=== PATIENT | female | born 1965 | race Caucasian/White ===

== ENCOUNTER 2022-05-10 12:15 | Outpatient (CLI) | payer OTHER, SELFPAY ==
[2022-05-10 19:50] LABS: Alanine Aminotransferase 39 U/L (6-35); Albumin Level 4.8 g/dL (3.5-5.1); Alkaline Phosphatase 68 U/L (38-126); Anion Gap 7 mmol/L (8-16); Aspartate Amino Transferase 50 U/L (14-36); Bilirubin,Total 0.9 mg/dL (0.2-1.3); Blood Urea Nitrogen 14 mg/dL (7-17); Calcium 9.6 mg/dL (8.4-10.2); Carbon Dioxide 31 mmol/L (22-30); Chloride 103 mmol/L (98-107); Cholesterol 211 mg/dL (0-200); Estimated Glomerular Filt Rate 52; Glucose 102 mg/dL (65-110); HDL Direct 51 mg/dL; Potassium 3.2 mmol/L (3.4-5.0); Sodium 141 mmol/L (137-145); Triglycerides 186 mg/dL (<150)
[2022-05-10 20:01] LABS: LDL Cholesterol Direct 109 mg/dL
[2022-05-10 20:19] LABS: Hemoglobin A1C 5.2 % (<5.7)
[2022-05-10 20:41] LABS: Basophils Percent Auto 0.6 % (0.2-1.2); Eosinophils Absolute Auto 0.4 K/mm3 (0-0.3); Eosinophils Percent Auto 6.6 % (0-4.4); Hemoglobin 16.1 g/dL (12.0-15.0); Immature Granulocyte Absolute 0.03 K/mm3 (0.00-0.031); Immature Granulocyte Percent A 0.5 % (0-0.5); Lymphocytes Absolute Auto 1.17 K/mm3 (0.9-3.2); Lymphocytes Percent Auto 18.3 % (18.3-44.2); Mean Corpuscular HGB Conc 31.6 g/dl (32-36); Mean Corpuscular Hemoglobin 29.9 pg (26-34); Mean Corpuscular Volume 94.6 fl (80-100); Mean Platelet Volume 11.7 fl (7.4-10.4); Monocytes Absolute Auto 0.4 K/mm3 (0.1-0.6); Monocytes Percent Auto 6.6 % (2.6-8.5); Neutrophils Absolute Auto 4.3 K/mm3 (1.3-6.7); Neutrophils Percent Auto 67.4 % (45.5-73.1); Platelet Count Result 190 k/mm3 (150-375); Red Blood Count 5.39 M/mm3 (4.2-5.4); Red Cell Distribution Width 14.6 % (11.5-14.5); White Blood Count 6.4 K/mm3 (4.5-10.0)
== END 2022-05-10 12:16 | disposition home or self-care (01) ==
PROVIDERS: PCP Family Medicine; Visit Provider Family Medicine
DX: Z00.00 Encounter for general adult medical examination without abnormal findings (principal); E66.9 Obesity, unspecified; M06.9 Rheumatoid arthritis, unspecified; M79.7 Fibromyalgia
CPT/HCPCS: 36415; 80053; 80061; 83036; 84443; 85025

== ENCOUNTER 2022-05-17 15:01 | Outpatient (CLI) | payer OTHER, SELFPAY ==
[2022-05-17 19:15] LABS: Thyroid Stimulating Hormone 0.464 uIU/mL (0.465-4.680)
[2022-05-20 04:20] LABS: Triiodothyronine T3 Free 3.1 pg/mL (2.3-4.2)
== END 2022-05-17 15:02 | disposition home or self-care (01) ==
LOC: ANHBWCLAB 15:02
PROVIDERS: PCP Family Medicine; Visit Provider Family Medicine
DX: R79.89 Other specified abnormal findings of blood chemistry (principal)
CPT/HCPCS: 36415; 84439; 84443; 84481

== ENCOUNTER 2022-06-29 03:26 | Day surgery (SDC) | payer OTHER, SELFPAY ==
[2022-06-19 09:09] VITALS: BMI 53.1
[2022-06-29 09:50] VITALS: BP 133/68; PULSE 96; RESP 18; TEMP 36.5; O2SAT 97; BMI 53.0
[2022-06-29] MEDS: LACTATED RINGERS 1,000 ML 150 ML IV CONT (10:00)
--- NOTE | 2022-06-29 10:05 | PM.HPGS ---
History of Present Illness History of Present Illness Consent: Risks, benefits, and alternatives have been discussed and questions answered. Patient agrees to proceed with procedure. Chief complaint: neoplasm screening Narrative: Samantha Roberto is a 57 year old female here for first screening colonoscopy Review of Systems Constitutional: Constitutional: Denies headache(s) and Denies weakness Eyes: Eyes: Denies blurry vision ENT: Reports Normal hearing present, Denies headache(s) and Denies neck pain Cardiovascular: Cardiovascular: Denies chest pain and Denies dyspnea Respiratory: Respiratory: Denies dyspnea Gastrointestinal: Gastrointestinal: Reports no additional gastrointestinal complaints Genitourinary: Genitourinary: Denies dysuria Musculoskeletal: Musculoskeletal: Denies neck pain Integumentary/Breasts: Skin/Breast: Denies dry skin Neurologic: Reports Normal hearing present, Denies headache(s) and Denies weakness Psychiatric: Psychiatric: Denies anxiety Endocrine: Endocrine: Denies change in body appearance Hematologic/Lymphatic: Hematologic/Lymphatic: Denies easy bleeding Allergic/Immunologic: Allergic/Immunologic: Denies urticaria PMFSH Family History Family History (Updated 05/10/22 @ 11:35 by Miri Hyde MA) Father Cancer Mother Hypertension Depression Heart disease Disorder of thyroid Lupus Sibling History of ETOH abuse Hypertension Depression Grandparent Disorder of thyroid Grandparent Disorder of thyroid Social History Social History (Updated 05/10/22 @ 11:01 by Miri Hyde MA) Smoking status: Never smoker Alcohol intake: never Substance use: current Substance use type: marijuana Last use: 1-2X monthly Lack of Transportation: No Lack of Food: Never True Current Housing: I Have Housing Concerned About Future Housing: No Difficulty Paying Gas/Electric Bills: No Difficulty Paying for Meds: No Currently Unemployed: No Education: Trade/Vocational Certificate Difficulty w/ Childcare or Family Care: No Living arrangements: with family Gender identity (if verbalized by the patient): Female Spiritual care concerns: No Agree to blood products: Yes Meds Home Medications and Allergies Home Medications Medication Instructions Recorded Confirmed Type biotin 10,000 mcg capsule 10,000 mcg PO DAILY 05/10/22 06/29/22 History bupropion HCl 150 mg 24 hr tablet, 150 mg PO QAM #90 tabs 05/10/22 06/29/22 Rx extended release (Wellbutrin XL) duloxetine 60 mg capsule,delayed 60 mg PO DAILY 05/10/22 06/29/22 History release folic acid 1 mg tablet 1 mg PO DAILY 05/10/22 06/29/22 History gabapentin 600 mg tablet 600 mg PO DAILY 05/10/22 06/29/22 History hydroxychloroquine 200 mg tablet 200 mg PO BID 05/10/22 06/29/22 History mecobalamin (vitamin B12) 5,000 5,000 mcg PO DAILY 05/10/22 06/29/22 History mcg disintegrating tablet zinc sulfate 50 mg zinc (220 mg) 50 mg PO DAILY 05/10/22 06/29/22 History capsule (Orazinc) aspirin 81 mg tablet 81 mg PO DAILY 06/19/22 06/29/22 History cetirizine 10 mg tablet (Zyrtec) 10 mg PO DAILY 06/19/22 06/29/22 History cyclobenzaprine 10 mg tablet 10 mg PO DAILY 06/19/22 06/29/22 History methotrexate sodium (PF) 25 mg/mL 12.5 mg IM WEEKLY 06/19/22 06/29/22 History injection solution oxycodone 5 mg tablet 5 - 10 mg PO Q12H PRN Pain 06/19/22 06/29/22 History potassium chloride 20 mEq 20 meq PO DAILY 06/19/22 06/29/22 History tablet,extended release topiramate 50 mg tablet 50 mg PO DAILY 06/19/22 06/29/22 History triamterene 37.5 1 cap PO DAILY #90 caps 06/25/22 06/29/22 Rx mg-hydrochlorothiazide 25 mg capsule Allergies Allergy/AdvReac Type Severity Reaction Status Date / Time No Known Allergies Allergy Verified 06/29/22 09:49 Vital Signs Vital Signs - 24 hr 06/29/22 09:50 Temperature 97.7 F Pulse Rate 96 Respiratory Rate 18 Blood Pressure 1
--- NOTE | 2022-06-29 10:07 | WPDANESEPPF ---
Anes - Initial Pre Proc Eval Procedure: Operation Date: 06/29/22 11:00 Proposed Procedures p Screening Colonoscopy - Carlos Scherer MD Date/Time: 06/29/22 10:07 Surgeon: Carlos Scherer MD Pre Op Diagnosis: neoplasm screening Patient Data Age: 57 Gender: F Height: 1.63 m Weight: 140.1 kg Last Vital Signs Temp 97.7 F 06/29/22 09:50 Pulse 96 06/29/22 09:50 Resp 18 06/29/22 09:50 BP 133/68 06/29/22 09:50 Pulse Ox 97 06/29/22 09:50 O2 Del Method Room Air 06/29/22 09:50 Allergies Allergy/AdvReac Type Severity Reaction Status Date / Time No Known Allergies Allergy Verified 06/29/22 09:49 Home Medications Medication Instructions Recorded Confirmed Type biotin 10,000 mcg capsule 10,000 mcg PO DAILY 05/10/22 06/29/22 History bupropion HCl 150 mg 24 hr tablet, 150 mg PO QAM #90 tabs 05/10/22 06/29/22 Rx extended release (Wellbutrin XL) duloxetine 60 mg capsule,delayed 60 mg PO DAILY 05/10/22 06/29/22 History release folic acid 1 mg tablet 1 mg PO DAILY 05/10/22 06/29/22 History gabapentin 600 mg tablet 600 mg PO DAILY 05/10/22 06/29/22 History hydroxychloroquine 200 mg tablet 200 mg PO BID 05/10/22 06/29/22 History mecobalamin (vitamin B12) 5,000 5,000 mcg PO DAILY 05/10/22 06/29/22 History mcg disintegrating tablet zinc sulfate 50 mg zinc (220 mg) 50 mg PO DAILY 05/10/22 06/29/22 History capsule (Orazinc) aspirin 81 mg tablet 81 mg PO DAILY 06/19/22 06/29/22 History cetirizine 10 mg tablet (Zyrtec) 10 mg PO DAILY 06/19/22 06/29/22 History cyclobenzaprine 10 mg tablet 10 mg PO DAILY 06/19/22 06/29/22 History methotrexate sodium (PF) 25 mg/mL 12.5 mg IM WEEKLY 06/19/22 06/29/22 History injection solution oxycodone 5 mg tablet 5 - 10 mg PO Q12H PRN Pain 06/19/22 06/29/22 History potassium chloride 20 mEq 20 meq PO DAILY 06/19/22 06/29/22 History tablet,extended release topiramate 50 mg tablet 50 mg PO DAILY 06/19/22 06/29/22 History triamterene 37.5 1 cap PO DAILY #90 caps 06/25/22 06/29/22 Rx mg-hydrochlorothiazide 25 mg capsule Patient hx anesthesia problems: none Family hx anesthesia problems: none Results Review: All pre-operative results and documents have been reviewed as part of the pre-operative evaluation. [facility] Family History Family History (Updated 05/10/22 @ 11:35 by Miri Hyde MA) Father Cancer Mother Hypertension Depression Heart disease Disorder of thyroid Lupus Sibling History of ETOH abuse Hypertension Depression Grandparent Disorder of thyroid Grandparent Disorder of thyroid Social History Social History (Updated 05/10/22 @ 11:01 by Miri Hyde MA) Smoking status: Never smoker Alcohol intake: never Substance use: current Substance use type: marijuana Last use: 1-2X monthly Lack of Transportation: No Lack of Food: Never True Current Housing: I Have Housing Concerned About Future Housing: No Difficulty Paying Gas/Electric Bills: No Difficulty Paying for Meds: No Currently Unemployed: No Education: Trade/Vocational Certificate Difficulty w/ Childcare or Family Care: No Living arrangements: with family Gender identity (if verbalized by the patient): Female Spiritual care concerns: No Agree to blood products: Yes Anes - Eval Final PreProcedure Day of Procedure 06/29/22 10:07 Patient weight: super morbidly obese Heart: regular rate and rhythm Lungs: clear to auscultation Airway: Mallampati scale class III Neurological: alert and oriented Last oral intake: >/= 8 hours ASA classification: IV Emergent: no Anesthetic plan: proceed Anesthesia type and monitoring: general GIVS and standard monitoring Results Review: All pre-operative results and documents have been reviewed as part of the pre-operative evaluation. Informed Consent: The patient's anesthetic plan and its attendant risks and benefits were discussed wi
[2022-06-29 10:22] VITALS: BP 108/57; PULSE 84; RESP 14; O2SAT 97
[2022-06-29 10:32] VITALS: BP 109/58; PULSE 82; RESP 16; O2SAT 99
[2022-06-29 10:42] VITALS: BP 112/64; PULSE 81; RESP 18; O2SAT 98
== END 2022-06-29 10:50 | disposition home or self-care (01) ==
PROVIDERS: PCP Family Medicine; Visit Provider Internal Medicine Gastroenterology
PROC: 0DJD8ZZ Inspection of Lower Intestinal Tract, Via Natural or Artificial Opening Endoscopic (ICD-10-PCS; CPT 45378; principal; 2022-06-29 11:00)
DX: Z12.11 Encounter for screening for malignant neoplasm of colon (principal); D12.2 Benign neoplasm of ascending colon; K64.8 Other hemorrhoids; Z79.82 Long term (current) use of aspirin; F12.90 Cannabis use, unspecified, uncomplicated; E66.01 Morbid (severe) obesity due to excess calories; Z68.43 Body mass index [BMI] 50.0-59.9, adult
CPT/HCPCS: 45385; 88305; J2704; J7120

== ENCOUNTER 2022-11-20 14:41 | Outpatient (CLI) | payer OTHER, SELFPAY ==
[2022-11-20 18:31] LABS: Basophils Percent Auto 0.6 % (0.2-1.2); Eosinophils Absolute Auto 0.4 K/mm3 (0-0.3); Eosinophils Percent Auto 5.6 % (0-4.4); Hematocrit 45.7 % (37.0-47.0); Hemoglobin 14.5 g/dL (12.0-15.0); Immature Granulocyte Absolute 0.03 K/mm3 (0.00-0.031); Immature Granulocyte Percent A 0.4 % (0-0.5); Lymphocytes Absolute Auto 1.46 K/mm3 (0.9-3.2); Lymphocytes Percent Auto 20.5 % (18.3-44.2); Mean Corpuscular HGB Conc 31.7 g/dl (32-36); Mean Corpuscular Hemoglobin 30.1 pg (26-34); Mean Platelet Volume 12.5 fl (7.4-10.4); Monocytes Absolute Auto 0.5 K/mm3 (0.1-0.6); Monocytes Percent Auto 7.6 % (2.6-8.5); Neutrophils Absolute Auto 4.6 K/mm3 (1.3-6.7); Neutrophils Percent Auto 65.3 % (45.5-73.1); Platelet Count Result 139 k/mm3 (150-375); Red Blood Count 4.81 M/mm3 (4.2-5.4); Red Cell Distribution Width 14.2 % (11.5-14.5); White Blood Count 7.1 K/mm3 (4.5-10.0)
[2022-11-20 18:38] LABS: Alanine Aminotransferase 36 U/L (6-35); Albumin Level 4.2 g/dL (3.5-5.1); Alkaline Phosphatase 60 U/L (38-126); Aspartate Amino Transferase 58 U/L (14-36); Bilirubin,Total 0.8 mg/dL (0.2-1.3)
[2022-11-20 19:58] LABS: Hepatitis B Surface Antigen Negative (Negative)
[2022-11-20 20:11] LABS: HAV RESULT Negative (Negative); Hepatitis B Core IgM Result Negative (Negative)
[2022-11-20 20:15] LABS: Hepatitis C Virus Antibody Negative (Negative)
== END 2022-11-20 14:42 | disposition home or self-care (01) ==
PROVIDERS: PCP Nurse Practitioner Adult Health; Visit Provider Family Medicine
DX: R74.8 Abnormal levels of other serum enzymes (principal); D75.1 Secondary polycythemia; R79.89 Other specified abnormal findings of blood chemistry; E66.9 Obesity, unspecified
CPT/HCPCS: 36415; 80074; 80076; 85025

== ENCOUNTER 2022-11-21 10:30 | Outpatient (CLI) | payer OTHER, SELFPAY ==
[2022-11-21 19:40] LABS: Anion Gap 9 mmol/L (8-16); Blood Urea Nitrogen 20 mg/dL (7-17); Calcium 9.6 mg/dL (8.4-10.2); Carbon Dioxide 31 mmol/L (22-30); Chloride 102 mmol/L (98-107); Estimated Glomerular Filt Rate 46; Glucose 96 mg/dL (65-110); Potassium 3.5 mmol/L (3.4-5.0); Sodium 142 mmol/L (137-145)
[2022-11-21 20:06] LABS: Thyroid Stimulating Hormone 0.138 uIU/mL (0.465-4.680)
== END 2022-11-21 10:31 | disposition home or self-care (01) ==
PROVIDERS: PCP Nurse Practitioner Adult Health; Visit Provider Nurse Practitioner Adult Health
DX: R79.89 Other specified abnormal findings of blood chemistry (principal); E87.6 Hypokalemia
CPT/HCPCS: 36415; 80048; 84439; 84443

== ENCOUNTER 2022-12-11 13:46 | Outpatient (CLI) | payer OTHER, SELFPAY ==
--- NOTE | ~2022-12-11 | XR_ITS ---
XR chest 2V DATE: 12/11/2022 13:57 INDICATION: Cough. Bronchitis. TECHNIQUE: PA and lateral views COMPARISON: None FINDINGS: Heart size is within normal range. No hilar or mediastinal enlargement. No pulmonary infiltrate or consolidation, pleural effusion or pulmonary vascular congestion or pneumo thorax. Degenerative spurring of the thoracic spine. IMPRESSION: No active cardiopulmonary disease Reviewed, dictated and finalized at location A.
== END 2022-12-11 13:47 | disposition home or self-care (01) ==
LOC: ANHBWCIMG 13:47
PROVIDERS: PCP Nurse Practitioner Adult Health; Visit Provider Nurse Practitioner Adult Health
DX: J40 Bronchitis, not specified as acute or chronic (principal)
CPT/HCPCS: 71046

== ENCOUNTER 2023-03-21 10:42 | Outpatient (CLI) | payer OTHER, SELFPAY ==
--- NOTE | ~2023-03-21 | CT_ITS ---
CT Scan of the Chest without Contrast: Clinical Indication: Chronic cough Technique: Contiguous sections were acquired throughout the chest without intravenous contrast. Dose reduction technique was used on this scan by utilizing automated exposure control and iterative recon struction technique. The dose-length product (DLP) was 928.39 mGy-cm. Findings: There is no evidence of any significant mediastinal, hilar or axillary lymphadenopathy. The mediastin al soft tissues appear normal. There is no evidence of pleural or pericardial effusion. The lungs are clear. No pulmonary nodules or infiltrates are noted. Images through the upper abdomen reveal diffuse fatty infiltration of liver. Impression: No pulmonary abnormality seen. Diffuse fatty infiltration of liver. Reviewed, dictated and finalized at location . ER DRY CELL Impression: No pulmonary abnormality seen. Diffuse fatty infiltration of liver.
--- NOTE | ~2023-03-21 | US_ITS ---
US thyroid INDICATION: Abnormal thyroid labs TECHNIQUE: Real-time sonographic images of the thyroid gland were obtained. COMPARISON: No prior studies for comparison. FINDINGS: The right thyroid lobe measures 4.2 x 1.3 x 1.8 cm. The left thyroid lobe measures 4.1 x 1 .2 x 1.6 cm. There is normal echotexture and echogenicity throughout the thyroid gland. There are sma ll thyroid cysts, largest measuring 3 mm in the right lobe. No solid discrete nodules identified. No rmal vascular flow is present. Small submandibular lymph nodes are present, likely reactive. IMPRESSION: 1. Unremarkable thyroid ultrasound. Small benign thyroid cysts measuring 3 mm or less. Reviewed, dictated and finalized at location L. [employer]
== END 2023-03-21 10:43 | disposition home or self-care (01) ==
PROVIDERS: PCP Family Medicine; Visit Provider Nurse Practitioner Adult Health
DX: R05.3 Chronic cough (principal); M06.9 Rheumatoid arthritis, unspecified; R79.89 Other specified abnormal findings of blood chemistry; K76.0 Fatty (change of) liver, not elsewhere classified
CPT/HCPCS: 71250; 76536

== ENCOUNTER 2023-11-12 16:27 | Outpatient (CLI) | payer OTHER, SELFPAY ==
[2023-11-12 18:52] LABS: Alanine Aminotransferase 45 U/L (6-35); Albumin Level 4.4 g/dL (3.5-5.1); Alkaline Phosphatase 59 U/L (38-126); Anion Gap 7 mmol/L (4-12); Aspartate Amino Transferase 50 U/L (14-36); Blood Urea Nitrogen 16 mg/dL (7-17); Calcium 9.4 mg/dL (8.4-10.2); Carbon Dioxide 32 mmol/L (22-30); Chloride 99 mmol/L (98-107); Estimated Glomerular Filt Rate 51; Glucose 93 mg/dL (65-110); Magnesium 2.1 mg/dL (1.6-2.3); Potassium 3.3 mmol/L (3.4-5.0); Sodium 138 mmol/L (137-145)
[2023-11-12 18:53] LABS: Hematocrit 46.7 % (37.0-47.0); Hemoglobin 15.1 g/dL (12.0-15.0); Mean Corpuscular HGB Conc 32.3 g/dl (32-36); Mean Corpuscular Volume 92.8 fl (80-100); Mean Platelet Volume 11.6 fl (7.4-10.4); Platelet Count Result 179 k/mm3 (150-375); Red Blood Count 5.03 M/mm3 (4.2-5.4); Red Cell Distribution Width 14.2 % (11.5-14.5); White Blood Count 6.5 K/mm3 (4.5-10.0)
[2023-11-12 19:28] LABS: Vitamin D 25 Hydroxy 24.7 ng/mL
[2023-11-20 09:18] LABS: Thyroid Peroxidase Antibodies 2 IU/mL (<9)
== END 2023-11-12 16:28 | disposition home or self-care (01) ==
LOC: ANHBWCLAB 16:28
PROVIDERS: PCP Family Medicine; Visit Provider Family Medicine
DX: E66.9 Obesity, unspecified (principal); D75.1 Secondary polycythemia; E87.6 Hypokalemia; G47.33 Obstructive sleep apnea (adult) (pediatric); M06.9 Rheumatoid arthritis, unspecified; M79.7 Fibromyalgia; R74.8 Abnormal levels of other serum enzymes; R79.89 Other specified abnormal findings of blood chemistry; Z00.00 Encounter for general adult medical examination without abnormal findings; R26.89 Other abnormalities of gait and mobility; R49.0 Dysphonia
CPT/HCPCS: 36415; 80053; 82306; 82607; 83735; 84439; 84443; 85027; 86376

== ENCOUNTER 2023-11-20 10:54 | Outpatient (CLI) | payer OTHER, SELFPAY ==
[2023-11-20 18:34] LABS: Hematocrit 49.2 % (37.0-47.0); Hemoglobin 15.5 g/dL (12.0-15.0); Mean Corpuscular HGB Conc 31.5 g/dl (32-36); Mean Corpuscular Hemoglobin 29.7 pg (26-34); Mean Corpuscular Volume 94.3 fl (80-100); Mean Platelet Volume 11.5 fl (7.4-10.4); Platelet Count Result 218 k/mm3 (150-375); Red Blood Count 5.22 M/mm3 (4.2-5.4); Red Cell Distribution Width 14.2 % (11.5-14.5); White Blood Count 9.4 K/mm3 (4.5-10.0)
[2023-11-20 19:30] LABS: Alanine Aminotransferase 38 U/L (6-35); Albumin Level 4.2 g/dL (3.5-5.1); Alkaline Phosphatase 58 U/L (38-126); Anion Gap 7 mmol/L (4-12); Aspartate Amino Transferase 57 U/L (14-36); Bilirubin,Total 0.7 mg/dL (0.2-1.3); Blood Urea Nitrogen 21 mg/dL (7-17); Calcium 9.4 mg/dL (8.4-10.2); Carbon Dioxide 33 mmol/L (22-30); Chloride 100 mmol/L (98-107); Cholesterol 188 mg/dL (0-200); Estimated Glomerular Filt Rate 51; Glucose 96 mg/dL (65-110); HDL Direct 60 mg/dL; Potassium 3.7 mmol/L (3.4-5.0); Sodium 140 mmol/L (137-145); Triglycerides 110 mg/dL (<150)
[2023-11-20 19:44] LABS: LDL Cholesterol Direct 102 mg/dL
[2023-11-20 20:08] LABS: Hepatitis B Surface Antigen Negative (Negative)
[2023-11-20 20:13] LABS: HAV RESULT Negative (Negative); Hepatitis B Core IgM Result Negative (Negative)
[2023-11-20 20:25] LABS: Hepatitis C Virus Antibody Negative (Negative)
[2023-11-20 22:46] LABS: Vitamin D 25 Hydroxy 21.7 ng/mL
== END 2023-11-20 10:55 | disposition home or self-care (01) ==
PROVIDERS: PCP Family Medicine; Visit Provider Family Medicine
DX: H90.3 Sensorineural hearing loss, bilateral (principal)
CPT/HCPCS: 36415; 80053; 80061; 80074; 82306; 82607; 85027; 92557; 92567

== ENCOUNTER 2024-10-22 12:17 | Outpatient (CLI) | payer BC, SELFPAY ==
--- OUTSIDE RECORDS SUMMARY | 2021-04-14 09:30 | XMS_ITS | Continuity of Care Document ---
Author Organization [facility] Address [address] [place] [address] Phone Care Team Providers Care Material Requirements Worker Name Role Phone Veda GENTILE, Aliza Unavailable Unavailable Allergies, Adverse Reactions, Alerts Substance Reaction Status Criticality No Known Allergies Active No Inform ation Medications Medication Instructions Dosage Effective Dates (start - stop) Status Comments biotin 1 mg capsule - Active cyclobenzaprine 5 mg tablet take 1 tablet by oral route every day as needed 5 MG - Active Zyrtec 10 mg tablet take 1 tablet by oral route every day 10 MG - Active hydrocodone bitartrate ER 10 mg capsule, oral only, extended rel 12 hr take 1 capsule by oral route every 12 hours 10 MG - Active hydroxychloroquine 200 mg tablet take 1 tablet by oral route every day 200 MG - Active Trexall 5 mg tablet take 1 tablet by oral route every week 5 MG - Active potassium 99 mg tablet - Active folic acid 20 mg capsule - Activ e Procedures Procedure Date SCODI, GDX Retina SCODI, GDX Retina SCODI, Retina Advance Directives Directive Yes / No Effective Date File Name No Information Encounters Encounter Description Practice Location Reason(s) For Visit Diagnoses Date Provider Providers Copied on Encounter [facility], [address], [place], [place], [id number], [place] tel:[phone] [address] [place] [facility] Professional MAC OCT only (chief complaint) No Information 2 Veda Abrams. [address], [place], [place], [id number], . tel:[phone] Referring Provider: Natasha Caicedo [facility] [address] [place], [address]. tel:[phone] [facility], [id number] [place] [address] [address], [place], [place], [id number], tel:[phone] [facility] Professional Testing only (chief complaint) No Information 0 Oscar Mcdonough. [address], [place], [place], [id number], . tel:[phone] Referring Provider: Natasha Caicedo [facility] [address] [place], [address]. tel:[phone] [facility], [address] [facility] [address], [place], [place], [id number], tel:[phone] [facility] Professional No Information 8 Mariscal Priyanka. [address] [place], [address], [place]. tel:[phone] Referring Provider: Natasha Caicedo [facility] [address] [place], [address]. tel:[phone] Family History Family Member Type Diagnosis Age At Onset Daughter Problem (finding) degenerative disorder o f macula Daughter Problem (finding) diabetes mellitus type 2 Payers Payer name Insurance type Covered green party ID Authortracya edgardtay(s) [facility] CI [id number] Social History Type Description Quantity Date Captured Comments Alcohol Use Details No Caffeine Use Details Tobacco Use Status Current non-smoker Smoking Status Never smoker Non-Smoking Tobacco Use Details : No Details Available : No Details Available Sex Female Chief Complaint And Reason For Visit From encounter dated '04/14/2021 14:30'. MAC OCT only (chief complaint). Description: The 55 year old female presents for evaluation of MAC OCT only in the right eye and left eye. Reason For Referral Reason For Referral No Information History Of Present Illness Encounter Date Complaint History Of Prese nt Illness MAC OCT only The 55 year old female presents for evaluation of MAC OCT only in the right eye and left eye. Testing only The 54 year old female presents for evaluation of Testing only in the right eye and left eye. Pt presents for a MAC OCT referred by Natasha Villasenor for RA. Functional Status Date Functional Assessmen t No Information Instructions Date Instruction Additional Infor mation No Information Assessments Type Assessment Date No Information Patient Care Teams Name Effective Dates (start - stop) Status Members No Information
--- NOTE | ~2024-10-22 | XR_ITS ---
EXAMINATION: XR wrist LT min 3V, 10/22/2024 12:30 CDT HISTORY: LT WRIST PAIN, RADIAL EDGE, FALL 1 MONTH AGO COMPARISON: No comparisons available. Findings: No acute fracture or malalignment. No significant degenerative changes. Soft tissues unremarkable. Impression: No acute fracture or malalignment. Reviewed, dictated and finalized at location A. Impression: No acute fracture or malalignment.
--- OUTSIDE RECORDS SUMMARY | 2024-10-22 12:20 | XMS_ITS | Clinical Summary ---
Author Organization [facility] Address [address] [facility] [place] [address] Care Team Providers Care Information Systems Security Developer Name Role Phone Tanya Casanova MD Primary Care Provider Kirstin calloway Source Comments [facility],non-[facility] Affiliates and Associated Physician Practices is amultiple site organization consisting of ambulatory clinics and hospital sitesin [place], [place], [place] and [place]. This disclosure is being madepursuant to the Care Everywhere program and may not contain all information available regarding this patient. Last updated 17.[facility] [employer] Social History Tobacco Use Types Packs/Day Years Used Date Smoking Tobacco: Never Assessed Comments Unknown Sex and Gender Information Value Date Recorded Sex Assigned at Not on file Legal Sex Female 4:34 PM CDT Gender Identity Not on file Sexual Orientation Not on file Plan of Treatment Health Maintenance Due Date Last Done Comments COLOGUARD (AGES 45-75) - COL ON CA SCREENING 1965 COLON MONITORING 1966 COLONOSCOPY - COLON CA SCREENING 1966 CT COLONOGRAPHY - COLON CA SCREENING 1965 Colorectal Cancer Screening 1966 FIT - COLON CA SCREENING 1966 FLEX SIG - COLON CA SCREENING 1966 LIPID TESTING 1966 MAMMOGRAM 1966 HIV SCREENING 1981 HEPATITIS C SCREENING 05/13/1984 DTAP/TDAP/TD VACCINES (1 - Tdap) 1985 HEPATITIS B VACCINE (1 of 3 - 19+ 3-dose series) 1985 PNEUMOCOCCAL VACCINE 50+ (1 of 1 - PCV) 2016 ZOSTER VACCINE (1 of 2) 2016 COVID-19 VACCINE (1 - 2023-2 5 season) 2023 DEPRESSION SCREENING 02/26/2024 INFLUENZA VACCINE (#1) 2024 HIB VACCINE Aged Out No longer eligi ble based on patient's age to complete this topic HPV VACCINE Aged Out No longer eligi ble based on patient's age to complete this topic MENINGOCOCCAL (Group B) VACC INE SHARED DECISION-MAKING Aged Out No longer eligibl e based on patient's age to complete this topic MENINGOCOCCAL GROUPS A/C/Y/W VACCINE Aged Out No longer eligible b ased on patient's age to complete this topic Insurance [facility] Address: [facility] [address] [place] [address] Care Teams Information Systems Security Developer Relationship Specialty Start Date End Date Tanya Casanova MD PCP - General 08/05/17
--- OUTSIDE RECORDS SUMMARY | 2024-10-22 12:20 | XMS_ITS | Clinical Summary ---
Author Organization [facility] Tommy Maher Address [address] [place] [address] Care Team Providers Care Jack Tamp Operator Name Role Phone Kody Khoury Primary Care Provider [phone] Allergies No known active allergies Medications inFLIXimab (Remicade) 100 mg Recon Soln 5 mg/kg one time only. Active METHOTREXATE SODIUM ORAL Take by mouth. Act kian GABAPENTIN ORAL Take by mouth. Activ e cyclobenzaprin e HCl (CYCLOBENZAPRI NE ORAL) Take by mouth. Activ e hydroxychloroq uine sulfate (HYDROXYCHLORO QUINE ORAL) Take by mouth. Act kian POTASSIUM CHLORIDE ORAL Take by mouth. A ctive cetirizine HCl/pseudoephe drine (CETIRIZINE-PS EUDOEPHEDRINE ORAL) Take by mouth. Activ e TRIAMTERENE ORAL Take by mouth. Activ e folic acid (FOLVITE) 1 mg tablet Take 1 mg by mouth daily. Active saliva stimulant combo #2 (BIOTENE) Liquid 1 Squirt by Mouth/Throat route see administration instructions. Active Active Problems Problem Noted Date Diagnosed Date Factor V Leiden mutation 09/09/2020 Family History Medical History Relation Name Comments Diabetes Daughter Throat Cancer Father Relation Name Status Comments Brother 1 Alive Brother 2 Daughter Alive Father Alive Mother Alive Sister Alive Son Alive Social History Tobacco Use Types Packs/Day Years Used Date Smoking Tobacco: Never Smokeless Tobacco: Never Alcohol Use Standard Drinks/Week Comments Never 0 (1 standard drink = 0.6 oz pur e alcohol) Comments No Sex and Gender Information Value Date Recorded Sex Assigned at Not on file Legal Sex Female 2:45 PM CDT Gender Identity Not on file Sexual Orientation Not on file Last Filed Vital Signs Vital Sign Reading Time Taken Comments Blood Pressure 120/71 09/09/2020 11:13 AM CDT Pulse 91 09/09/2020 11:13 AM CDT Temperature 36.8 C (98.2 F) 09/09/2020 11:13 AM CDT Respiratory Rate - - Oxygen Saturation 96% 09/09/2020 11: 13 AM CDT Inhaled Oxygen Concentration - - Weight 143.7 kg (316 lb 11.2 oz) 2020 11:13 AM CDT Height 162.6 cm (5' 4) 09/09/2020 11:1 3 AM CDT Body Mass Index 54.36 09/09/2020 11:13 AM CDT Plan of Treatment Health Maintenance Due Date Last Done Comments HEPATITIS B VACCINES (1 of 3 - 19+ 3-dose series) 04/26 ZOSTER VACCINE (1 of 2) 1985 HPV/Cotest (21-29) 05/19/1987 CERVICAL CANCER SCREENING 1996 HPV/Cotest (30-65) 1996 PAP SMEAR 1996 BREAST CANCER SCREENING 2006 COLORECTAL SCREENING 05/19/2011 Colorectal Cancer Screening 05/19/2011 FIT-DNA Q 3 years 05/19/2011 FIT/FOBT Q 1 year 05/19/2011 Flex Sig/CT Colonography Q 5 years 05/19/2011 DTAP/TDAP/TD VACCINES (2 - Td or Tdap) 11/21/2022 INFLUENZA VACCINE (#1) 2024 12/24/2016 Insurance [facility] [employer] PPO [id number] Care Teams Jack Tamp Operator Relationship Specialty Start Date End Date Kody Khoury [place] [address] [place] [address] PCP - General Physician [employer] [place] Judge 09/09/20
--- OUTSIDE RECORDS SUMMARY | 2024-10-22 12:20 | XMS_ITS | Clinical Summary ---
Author Organization [facility] Address [address] [place] [address] Phone Care Team Providers Care Farm Management Supervisor Name Role Phone Kody Khoury Primary Care Provider [phone] Allergies No known active allergies Medications hydroxychloroqu ine (PLAQUENIL) 200 MG TabletIndicatio ns:Rheumatoid Arthritis Take 400 mg by mouth nightly. Active methotrexate 2.5 MG TabletIndicatio ns:Rheumatoid Arthritis Take by mouth daily. 6 PILLS Active triamterene-hyd rochlorothiazid e (DYAZIDE) 37.5-25 MG Capsule Take 1 Cap by mouth daily. Active folic acid (FOLVITE) 1 MG Tablet Take 1 mg by mouth daily. Active Potassium 99 MG Tablet Take 1 Tab by mouth nightly. Active BIOTIN FORTE PO Take 10,000 mcg by mouth nightly. Active HYDROcodone-cecilio taminophen (NORCO) 5-325 MG Tablet Take 1-2 Tabs by mouth every 4 hours as needed for Severe pain. 15 Tab 08/15/19 18 Active Additional Information Patient taking differently: 1 TabletOralEVERY 12 HOURS PRN, Severe pain, Reported on 01/14/2019 methotrexate 2.5 MG Tablet methotrexate sodium 2.5 mg tablet Take 5 tablets every day by oral route for 28 days. 04/05/19 19 Active potassium chloride (KLOR-CON) 20 MEQ Pack 20 mEq. TAKES DAILY, HAS BEEN FOR LAST 2 YEARS 02/24/20 11 Active Diclofenac Sodium (PENNSAID) 1.5 % Solution 1.5 %. 07/14/19 11 Active doxycycline monohydrate 100 MG Tablet 100 mg. 09/12/19 13 Active furosemide (LASIX) 40 MG Tablet 40 mg. 06/22/19 11 Active Isopropyl Myristate Solution every 12 hours Activ e Loratadine 10 MG CapsuleIndicati ons:TAKES IN SUMMER ONLY Take 10 mg by mouth. Indications: TAKES IN SUMMER ONLY Active Methotrexate, Anti-Rheumatic, (RHEUMATREX PO) Take by mouth. Active naproxen (NAPROSYN) 500 MG Tablet 500 mg. 02/11/20 12 Active predniSONE (DELTASONE) 5 MG Tablet Take 3 tabs (15mg) for 7 days, take 2 tabs (10mg) for 7 days, take 1 tab (5mg) for 7 days 11/21/19 17 Active Topiramate 50 MG Tablet Take 50 mg by mouth. 10/09/19 13 Active zolpidem (AMBIEN) 5 MG Tablet 5 mg. 04/08/19 14 Active cyclobenzaprine (FLEXERIL) 10 MG Tablet Take 10 mg by mouth 3 times daily as needed. Active cetirizine (ZYRTEC) 10 MG Tablet Take 10 mg by mouth daily. Active HYDROcodone-cecilio taminophen (NORCO) 5-325 MG Tablet Take 1-2 Tabs by mouth every 4 hours as needed for Moderate or more severe pain. 15 Tab 01/29/20 19 Active Methotrexate, PF, 12.5 MG/0.25ML Solution Auto-injector 12.5 mg by Subcutaneous route once a week. Gets on Fridays Active gabapentin (NEURONTIN) 600 MG Tablet gabapentin 600 mg tablet Active Active Problems Problem Noted Date Diagnosed Date Rheumatoid nodules 05/06/2019 Hypokalemia 05/06/2019 Tailor's bunion of right foot 01/28/2019 Rheumatoid arthritis 08/14/2017 Morbid obesity 07/24/2017 Resolved Problems Problem Noted Date Diagnosed Date Resolved Date Capsulitis of foot, left 05/06/201912/2019 Bunionette of left foot 05/06/201904/25 Rheumatoid nodule 08/14/2017 08/14/2017 Bunionette of left foot 08/14/201707/27 Family History Medical History Relation Name Comments Cancer Father VOCAL CORDS Rheumatoid Arthritis Father Skin Cancer Father Rheumatoid Arthritis Maternal Aunt Congestive Heart Failure Maternal Uncle Hypertension Mother Lupus Mother Other-comment Mother FIBROMYALGIA Rheumatoid Arthritis Mother Relation Name Status Comments Father Alive Maternal Aunt Maternal Uncle Mother Alive Social History Tobacco Use Types Packs/Day Years Used Date Smoking Tobacco: Never Smokeless Tobacco: Never Alcohol Use Standard Drinks/Week Comments Yes 0 (1 standard drink = 0.6 oz pur e alcohol) HOLIDAYS, ONE DRIINK Comments Unknown Sex and Gender Information Value Date Recorded Sex Assigned at Not on file Legal Sex Female 11:36 PM CDT Gender Identity Not on file Sexual Orientation Not on file Last Filed Vital Signs Vital Sign Reading Time Taken Comments Blood Pressure 142/84 04/06/2020 1:57 PM COREMAKER MACHINE Pulse 93 04/06/2020 1:57 PM COREMAKER MACHINE Temperature 36.9 C (98.5 F) 04/06/2020 1:57 PM COREMAKER MACHINE Respiratory Rate 16 05/06/2019 11:30 AM CDT Oxygen Saturation 95% 04/06/2020 1:57 PM COREMAKER MACHINE Inhaled Oxygen Concentration - - Weight 146.1 kg (322 lb) 04/06/2020 1:57 PM COREMAKER MACHINE Height 163.8 cm (5' 4.5) 05/06/2019 6:07 AM CDT Body Mass Index 54.42 05/06/2019 6:07 AM CDT Plan of Treatment Health Maintenance Due Date Last Done Comments Hepatitis C Virus (HCV) Screening 1966 TdaP Immunization 1966 Hepatitis B Immunization (1 of 3 - 19+ 3-dose series) 1985 Zoster Immunization (1 of 2) 1985 Cologuard 05/19/2011 Colonoscopy 05/19/2011 Colorectal Cancer Screening 05/19/2011 Immunochemical Fecal Occult Blood 05/19/2011 Pneumococcal Immunization (5 0+ years) (1 of 1 - PCV) 2016 SARS-COV-2 Immunization (3 - Pfizer risk series) 07/19/2020 06/21/2020, 05/30/2020 Influenza Immunization (#1) 2024 Respiratory Syncytial Virus (RSV) Immunization (Adult) (1 - 1-dose 75+ series) 2041 Human Papillomavirus (HPV) Immunization Aged Out No longer eligible b ased on patient's age to complete this topic Meningococcal Immunization (ACWY) Aged Out No longer eligible b ased on patient's age to complete this topic Rotavirus Immunization Aged Out No lo nger eligible based on patient's age to complete this topic Care Teams Farm Management Supervisor Relationship Specialty Start Date End Date Kody Khoury, PAC [address] [place] [address] PCP - General Physician Inside Sales Coordinator 07/19/17
--- OUTSIDE RECORDS SUMMARY | 2024-10-22 12:20 | XMS_ITS | Clinical Summary ---
Author Organization [facility] Address [facility] [place] [address] Care Team Providers Care Scientific Informatics Analyst Name Role Phone Unavailable Primary Care Provider Unavailabl e Social History Tobacco Use Types Packs/Day Years Used Date Smoking Tobacco: Never Assessed Comments Unknown Sex and Gender Information Value Date Recorded Sex Assigned at Not on file Legal Sex Female 7:55 PM CDT Gender Identity Not on file Sexual Orientation Not on file Plan of Treatment Health Maintenance Due Date Last Done Comments Cervical Cancer Screening Pa p Smear (Age 30 to 64) Every 3 Years 1966 Colorectal Cancer Screening Colonoscopy (10 Years) 1966 Annual Physical 1969 Hepatitis C 1984 DTaP, Tdap and Td Vaccines ( 1 - Tdap) 1985 Hepatitis B Vaccines (1 of 3 - 19+ 3-dose series) 1985 Cervical Cancer Screening Pa p with HPV Testing (Age 30 to 64) Every 5 Years 1996 Cervical Cancer Screening with HPV 1996 Mammogram Screening 2006 Pneumococcal Vaccine: 50+ Ye ars (1 of 1 - PCV) 2016 Zoster Vaccines (1 of 2) 2016 COVID-19 Vaccine (2023-2 5 season) 2023 Meningococcal B Vaccine Aged Out No l onger eligible based on patient's age to complete this topic Meningococcal Vaccine Aged Out No cornell frank eligible based on patient's age to complete this topic RSV Immunizations Under 20 Months Aged Out No longer eligible based on patient's age to complete this topic
--- OUTSIDE RECORDS SUMMARY | 2024-10-22 12:20 | XMS_ITS | Clinical Summary ---
Author Organization [facility] Address [facility] [place] [address] Care Team Providers Care County Attorney Name Role Phone Travon Renee MD Primary Care Provider [phone] Allergies Active Allergy Reactions Criticality Noted Date Comments Mushroom Swelling Medium 10/09/2018 Medications hydroxychloroqui ne (PLAQUENIL) 200 mg tablet TAKE ONE TABLET BY MOUTH EVERY TWELVE HOURS 60 3 1 Active Additional Information Patient taking differently: 400 mg oral Nightly, Indications: Rheumatoid Arthritis, Reported on 05/30/2022 potassium chloride ER (KLOR-CON M20) 20 mEq CR tablet take 1 tablet (20MEQ) by oral route every day with food 30 6 1 Active Additional Information Patient taking differently:20 mEqoral Nightly, Reported on 05/30/2022 cyclobenzaprine (FLEXERIL) 10 mg tablet take 1 tablet (10MG) by ORAL route 3 times every day prn 30 0 2 Active Additional Information Patient taking differently:10 mgoral Nightly, Indications: Fibromyalgia, Reported on 05/30/2022 triamterene-hydr oCHLOROthiazide (DYAZIDE) 37.5-25 mg per capsule TAKE ONE CAPSULE BY MOUTH EVERY DAY 30 10 1 Active Additional Information Patient taking differently: 1 tablet/capsule oral Nightly, Reported on 05/01/2021 BIOTIN ORALIndications: Biotin Deficiency Take 10,000 mcg by mouth nightly Active folic acid (FOLVITE) 1 mg tablet Take 1 tablet (1 mg total) by mouth daily. 30 tablet 5 7 Active Additional Information Patient taking differently:1 mg oralNightly, Indications: Folate Deficiency, Informant: Self, Reported on 05/30/2022 METHOTREXATE SODIUM, PF, INJIndications:R heumatoid Arthritis Inject 12.5 mg under the skin every 7 days Tuesdays 2 9 Active oxyCODONE (ROXICODONE) 5 mg immediate release tablet Take 1 tablet (5 mg total) by mouth 2 (two) times a day as needed for pain Active aspirin 81 mg enteric coated tabletIndication s:factor 5 Take 1 tablet (81 mg total) by mouth nightly Active infliximab-axxq (AVSOLA IV) Infuse into a venous catheter every 8 (eight) weeks Active SUMAtriptan (IMITREX) 100 mg tabletIndication s:Migraine Take one tabet po q2h prn as soon as feel headache is coming. No more than 2 tablets in 24 hours. 9 tablet [address] (CYMBALTA) 60 mg capsule Take 1 capsule (60 mg total) by mouth daily 30 capsule 5 3 Active buPROPion XL (WELLBUTRIN XL) 150 mg 24 hr tablet bupropion HCl XL 150 mg 24 hr tablet, extended release Active zinc 50 mg tablet Take by mouth Active topiramate (TOPAMAX) 50 mg tablet Take 1 tablet by mouth twice daily 60 tablet 5 3 Active HYDROcodone-acet aminophen (NORCO) 7.5-325 mg per tablet Take 1 tablet by mouth every 8 (eight) hours as needed 4 Active topiramate 100 mg capsule,extended release 24hr Take 100 mg by mouth daily 30 capsule 5 4 Active gabapentin (NEURONTIN) 600 mg tabletIndication s:Rheumatoid arthritis of multiple sites without rheumatoid factor (HCC),Persistent disorder of initiating or maintaining sleep Take gabapentin 600 mg 1 tablet 2 hours prior to bedtime and 1 tablet at bedtime. 60 tablet 6 4 Active Active Problems Problem Noted Date Diagnosed Date Pseudotumor cerebri 05/24/2023 Insomnia secondary to chronic pain 06/22/2021 Cervical radiculopathy 05/31/2021 Degenerative disc disease, cervical 05/04/2021 Primary osteoarthritis of right hip 02/10/2021 Migraine without aura and wi th status migrainosus, not intractable 11/08/2020 Obstructive sleep apnea 08/25/2018 Assessment & Plan (12/30/2018 11:55 AM SEALANT MIXER): She will wear her bilevel set at 12/8 cm water pressure nightly for 7-9 hours to reduce risk of heart attack, stroke, irregular heart rhythm, hypertension, congestive heart failure, diabetes and fatigue. Assessment & Plan (10/09/2018 12:36 PM CDT): She will wear her bilevel set at 12/8 cm of water pressure nightly with her Airfit F 30 medium fullface mask. She will rearrange her bedtime to try to go to bed between 930 and 10:00 p.m. With final awakening at 5:30 a.m.. She will plan to take a 30 minutes nap in the afternoon on her bilevel. She will bring her bilevel by to be downloaded in the office in 1-2 weeks. Assessment & Plan (08/25/2018 3:23 PM CDT): Reviewed and discussed the risk of untreated sleep apnea the patient to include increased risk of heart attack, stroke, hypertension, weight gain, irregular heart rhythm and fatigue associated with untreated sleep apnea. She was refit and given an Airfit F 30 hybrid fullface mask size medium. She will strive to use her bilevel nightly for 7-9 hours. She will follow up the office in 6 weeks. Fatigue 08/25/2018 Assessment & Plan (08/25/2018 3:24 PM CDT): Reviewed and discussed with the patient that untreated sleep apnea can cause severe problems with daytime sleepiness and fatigue. She will strive to use her bilevel set at 12/8 cm of water pressure nightly for 7-9 hours. Class 3 severe obesity due t o excess calories with serious comorbidity and body mass index (BMI) of 50.0 to 59.9 in adult 08/25/2018 Assessment & Plan (12/30/2018 11:54 AM SEALANT MIXER): She will try to practice good dietary habits eating more fresh vegetables, fruit and lean proteins in her diet. Assessment & Plan (10/09/2018 12:36 PM CDT): She will try to walk 30-40 minutes daily help promote weight loss. She will try to incorporate a diet of vegetables, fruits and lean proteins into her diet. Assessment & Plan (08/25/2018 3:23 PM CDT): She will try to get 30 minutes of activity daily to promote weight loss. She will try practice good eating habits eating more vegetables, fruits and lean meats. She will try to get 7-9 hours of sleep nightly to help promote weight loss. Rheumatism 04/30/2018 Rheumatoid arthritis 08/14/2017 Elevated serum creatinine 05/01/2017 Rheumatoid arthritis of [facility] without rheumatoid factor 08/20/2016 High risk medication use 08/20/2016 Rheumatoid arthritis 12/28/2013 Overview (05/31/2016): RA Hypertension 07/11/2013 Overview (05/31/2016): HYPERTENSION NOS Assessment & Plan (12/30/2018 11:55 AM SEALANT MIXER): She will wear her bilevel set at 12/8 cm water pressure nightly for 7-9 hours to reduce risk of heart attack, stroke, irregular heart rhythm, hypertension, congestive heart failure, diabetes and fatigue. Edema 07/11/2013 Overview (06/01/2016): Edema Trigeminal neuralgia 12/08/2012 Drug indicated 11/15/2011 Overview (05/31/2016): LONG-TERM USE MEDS NEC Skin benign neoplasm 10/03/2011 Abnormal mammogram 03/07/2011 Disorder of joint 12/06/2010 Overview (05/31/2016): ARTHROPATHY NOS-UNSPEC Abnormal C-reactive protein 06/21/2010 Overview (06/01/2016): Elevated C-Reactive Protein (CRP) Multiple joint pain 06/21/2010 Overview (06/01/2016): JOINT PAIN-MULT JTS Fibromyalgia Seasonal allergies Vertigo Degenerative cervical spinal stenosis Resolved Problems Problem Noted Date Diagnosed Date Resolved Date Morbid obesity 07/24/2017 08/25/2018 Class 3 obesity due to exces s calories in adult 01/24/2017 08/25/2018 Obesity due to excess calories 08/20/2016 08/25/2018 BMI 50.0-59.9, adult 08/20/2016 019 Encounters Date Type Department Care Team Description 10/13/2024 Telephone [facility] [address] [facility] [address] [place] [address] [place] [employer] PUN[employer]ER from Last 3 Months Immunizations Immunization Administration Dates Next Due Influenza, Quadrivalent, Spl it, Preservative Free, Intramuscular 12/24/2016 Tdap 11/21/2012 Surgical History Surgery Date Site/Laterality Comments TONSILLECTOMY TUBAL LIGATION FOOT SURGERY Left BREAST BIOPSY Left KNEE SURGERY Bilateral SECTION 02/26/1992 - 02/24/1993 section x 2, first in 1987 HYSTERECTOMY 02/25/2003 - 02/25/2004 Pre-cancerous uterine cells: Partial hysterectomy FLUORO GUIDED INJECTION HIP RIGHT 10/03/2021 Right FLUORO GUIDED INJECTION HIP RIGHT 02/08/2022 Right FLUORO GUIDED INJECTION HIP RIGHT 06/14/2022 Right Medical History Medical History Date Comments Bronchitis 2009 Bronchitis Hypertension Hypertension Hx Other Medical 2000 Lateral release LT knee Hx Other Medical 2004 Lateral Release RT knee Fibromyalgia Rheumatoid arthritis (HCC) Seasonal allergies Fibromyalgia Difficulty walking Vertigo Heterozygous factor V Leiden mutation Sleep apnea Family History Medical History Relation Name Comments Crohn's disease Cousin 1 Crohn's dise ase; Lupus Cousin 2 Systemic lupus erythematosus; Diabetes Daughter Diabetes mellit us; Arthritis Mother Fibromyalgia Mother Fibromyalgia; Lupus Mother Systemic lupus erythematosus; Rheum arthritis Mother Rheumatoid a rthritis; Fibromyalgia Mother's Sister 1 Fibromyalg ia; Rheum arthritis Mother's Sister 2 Rheumat oid arthritis; Hypertension Other 1 Family history of Hypertension; Other Other 2 Family history of Diabetes mellitus type 1; Anesthesia problems Neg Hx Kidney disease Neg Hx Relation Name Status Comments Cousin 1 Cousin 2 Daughter Mother Mother's Sister 1 Mother's Sister 2 Other 1 Other 2 Social History Tobacco Use Types Packs/Day Years Used Date Smoking Tobacco: Never Smokeless Tobacco: Never Tobacco Cessation:Counseling Given: Not Answered Alcohol Use Standard Drinks/Week Comments No 0 (1 standard drink = 0.6 oz pur e alcohol) AUDIT-C Answer Date Recorded Q1: How often do you have a drink containing alc ohol? Never 01/24/2021 Average Number of Drinks Not on file 021 Q3: How often do you have si x or more drinks on one occasion? Never 01/24/2021 PHQ-2 Answer Date Recorded PHQ-2 Total Score (If total score is 3 or more points, staff should administer the PHQ-9) 2 06/23/2021 Comments No Sex and Gender Information Value Date Recorded Sex Assigned at Not on file Legal Sex Female 6:49 PM SEALANT MIXER Gender Identity Not on file Sexual Orientation Not on file Obstetrics History Para Term AB IAB SAB Ectopic Multiple Livin g Live Births 2 2 2 Date Outcome GA Total Labor Labor/2nd/3rd Weight Sex Type Anes PTL Anaid A1 A5 Name Clin Term Term Last Filed Vital Signs Vital Sign Reading Time Taken Comments Blood Pressure 115/78 08/16/2023 3:51 PM CDT Pulse 112 08/16/2023 3:51 PM CDT Temperature 36.3 C (97.3 F) 08/16/2023 3:51 PM CDT Respiratory Rate 18 08/16/2023 3:51 PM CDT Oxygen Saturation 97% 08/16/2023 3:51 PM CDT Inhaled Oxygen Concentration - - Weight 146.6 kg (323 lb 3.2 oz) 08/16/2023 3:51 PM CDT Height 162.6 cm (5' 4) 08/16/2023 3:51 PM CDT Body Mass Index 55.48 08/16/2023 3:51 PM CDT Plan of Treatment Health Maintenance Due Date Last Done Comments Colon Cancer Screening-Colonoscopy 1966 Hepatitis C Screening 1966 Hepatitis B Screening 1984 Pneumococcal vaccine <65 (1 of 2 - PCV) 1985 Zoster Vaccine (1 of 2) 1985 Regular Well Visit/Exam 18-64 12/24/2017 12/24/2016 Breast Cancer Screening-Mammogram 03/28/2018 018, 10/08/2012 Covid-19 Vaccine (3 - Pfizer risk series) 07/19/2020 06/21/2020, 05/30/2020 Depression Screening 06/23/2022 06/23/2021, 06/23/2021, 05/31/2021, Additional history exists DTaP/Tdap/Td Vaccine (2 - Td or Tdap) 11/21/2022 11/21/2012 Influenza Vaccine (#1) 2024 12/24/2016 Procedures Procedure Name Priority Date/Time Associated Diagnosis Comments SCREENING MAMMOGRAM 2D BILATERAL Schedule Routine, Read Routine (OP Routine) 03/28/2017 12:30 PM SEALANT MIXER Encounter for annual routine gynecological examination from Last 3 Months or Most Recently Relevant to Health Maintenance Results * Screening Mammogram 2D Bilateral (03/28/2017 12:30 PM SEALANT MIXER) Anatomical Region Laterality Modality Breast Bilateral Mammography Impressions 03/28/2017 3:28 PM SEALANT MIXER 1. BI-RADS Category 1, negative. 2. Annual bilateral screening mammography is recommended. Electronically signed by: Kody Sterling M.D. Narrative 03/28/2017 3:28 PM SEALANT MIXER RESULT: EXAMINATION: Bilateral screening mammogram HISTORY: Routine screening. COMPARISON: 10/08/2012 TECHNIQUE: Full view digital CC and MLO views of the breasts were obtained. Images were subjected to R2/CAD analysis. FINDINGS: The breasts are almost entirely fatty. There is a biopsy marker clip near the left nipple. No evidence of a suspicious mass lesion, clustered microcalcifications, architectural distortion or skin thickening. The parenchymal pattern is unchanged from previous. Mary Alice Mendoza MD IMG MAMMO PROCEDURES Fin al Result from Last 3 Months or Most Recently Relevant to Health Maintenance Insurance [facility] PLUS [facility] PLUS [facility] PLUS Care Teams County Attorney Relationship Specialty Start Date End Date Travon Renee MD PCP - General Family Practice 05/24/23
[2024-10-22 18:43] LABS: Hematocrit 48.0 % (37.0-47.0); Hemoglobin 15.7 g/dL (12.0-15.0); Immature Granulocyte Percent A 0.3 % (0-0.5); Lymphocytes Absolute Auto 1.45 K/mm3 (0.9-3.2); Mean Corpuscular HGB Conc 32.7 g/dl (32-36); Mean Corpuscular Hemoglobin 29.6 pg (26-34); Mean Corpuscular Volume 90.4 fl (80-100); Nucleated Red Blood Cells Absolute Auto 0.000 K/mm3 (0.0-0.012); Nucleated Red Blood Cells Perc 0.0 % (0.0-0.2); Platelet Count Result 190 k/mm3 (150-375); Red Blood Count 5.31 M/mm3 (4.2-5.4); White Blood Count 7.2 K/mm3 (4.5-10.0)
[2024-10-22 18:52] LABS: Alanine Aminotransferase 28 U/L (6-35); Albumin Level 4.3 g/dL (3.5-5.1); Alkaline Phosphatase 69 U/L (38-126); Anion Gap 7 mmol/L (4-12); Aspartate Amino Transferase 57 U/L (14-36); Bilirubin,Total 0.8 mg/dL (0.2-1.3); Blood Urea Nitrogen 14 mg/dL (7-17); Calcium 9.9 mg/dL (8.4-10.2); Carbon Dioxide 33 mmol/L (22-30); Chloride 98 mmol/L (98-107); Cholesterol 212 mg/dL (0-200); Estimated Glomerular Filt Rate 48; Glucose 104 mg/dL (65-110); HDL Direct 52 mg/dL; Potassium 3.2 mmol/L (3.4-5.0); Sodium 138 mmol/L (137-145); Total Protein 8.2 g/dL (6.3-8.2); Triglycerides 113 mg/dL (<150)
[2024-10-22 19:13] LABS: Free T4 Free Thyroxine 1.13 ng/dL (0.78-2.19)
[2024-10-22 19:28] LABS: Thyroid Stimulating Hormone 1.930 uIU/mL (0.465-4.680)
[2024-10-22 19:47] LABS: Vitamin B12 411.0 pg/mL (239-931)
[2024-10-24 07:09] LABS: Triiodothyronine (T3), Free 3.5 pg/mL (2.0-4.4)
== END 2024-10-22 12:18 | disposition home or self-care (01) ==
PROVIDERS: PCP Family Medicine; Visit Provider Family Medicine
DX: R79.89 Other specified abnormal findings of blood chemistry (principal); E66.9 Obesity, unspecified; R74.01 Elevation of levels of liver transaminase levels; D75.1 Secondary polycythemia; M79.7 Fibromyalgia; G89.29 Other chronic pain; G47.33 Obstructive sleep apnea (adult) (pediatric); R26.89 Other abnormalities of gait and mobility; Z00.00 Encounter for general adult medical examination without abnormal findings; M25.531 Pain in right wrist
CPT/HCPCS: 36415; 73110; 80053; 80061; 82306; 82607; 84439; 84443; 84481; 84482; 85025; 86800

== ENCOUNTER 2025-01-02 14:50 | Outpatient (CLI) | payer BC, SELFPAY ==
--- OUTSIDE RECORDS SUMMARY | 2023-11-05 05:30 | XMS_ITS ---
Author Organization [facility] Address [address] [facility] [facility] [address] [place] [address] Care Team Providers Care Filenet P8 Developer Name Role Phone Víctor MAURER, Travon Primary Care Provider Unavailcarol rhonda Linda Marques [phone] REASON FOR VISIT Infusion 6 Du Encounters Encounter Location Date Provider Diagnosis [facility] [address] [facility] [address] [place] [address] 11/05/2023 Linda Marques Plan Of Treatment No Information Progress Notes * Samantha EM EDOB:[birth year] (59 yo F)Acc No.[id number]:11/05/2023 [facility] Patient: Samantha MEEK Appointment Provider: Luis Carlos MARQUES MD :1965 A ge:58 Y S ex:Female Date:11/05/2023 Address:[address] [place], [place] [id number] Pcp:Travon Renee MD Subjective: * Chief Complaints: * 1 . Infusion 6 Du. * Medical History: Objective: * Vitals: Assessment: Plan: * Treatment: * Billing Information: * Visit Code: * Procedure Codes: * Electronic signature of Linda Marques MD on 01/02/2025 at 02:58 PM SHEET IRONWORKER Sign off status: Pending * Appointment Provider: Luis Carlos MARQUES MD Date: 0 11/05/2023 Generated for Printi ng/Faxing/eTransmitting on: 1 03/04/2024 02:58 PM SHEET IRONWORKER
--- OUTSIDE RECORDS SUMMARY | 2024-02-27 07:00 | XMS_ITS ---
Author Organization [facility] Address [address] [facility] [address] [place] [address] Care Team Providers Care Leveling Machine Operator Name Role Phone Víctor MAURER, Travon Primary Care Provider Linda Gomes [phone] REASON FOR VISIT 3 month follow up/flc Encounters Encounter Location Date Provider Diagnosis [facility] [address] [facility] [address] [place] [address] 02/27/2024 Linda Marques Plan Of Treatment No Information Progress Notes * Samantha JORGE EDOB:[birth year] (59 yo F)Acc No.[id number]:02/27/2024 Progress Notes Patient: Samantha MEEK Appointment Provider: Luis Carlos MARQUES MD :1965 A ge:58 Y S ex:Female Date:02/27/2024 Address:[address] [place], [place] [id number] Pcp:Travon Renee MD Subjective: * Chief Complaints: * 1 . 3 month follow up/flc. * Medical History: Objective: * Vitals: Assessment: Plan: * Treatment: * Billing Information: * Visit Code: * Procedure Codes: * Electronic signature of Linda Marques MD on 01/02/2025 at 02:58 PM WELDER APPRENTICE ARC Sign off status: Pending * Appointment Provider: Luis Carlos MARQUES MD Date: 0 02/27/2024 Generated for Printi ng/Faxing/eTransmitting on: 1 03/04/2024 02:58 PM WELDER APPRENTICE ARC
--- NOTE | ~2025-01-02 | XR_ITS ---
EXAMINATION: XR chest 2V, 01/02/2025 15:09 [facility] HISTORY: R05.9 - Cough, unspecified COMPARISON: No comparisons available. Technique: 2 views obtained. Findings: The lungs are clear, no effusion. No pneumothorax. Heart is normal size. Mediastinal and hilar contours are within normal limits. Bony thorax no acute abnormality. Impression: No acute cardiopulmonary abnormality. Reviewed, dictated and finalized at location P. [facility] Impression: No acute cardiopulmonary abnormality.
--- OUTSIDE RECORDS SUMMARY | 2025-01-02 14:58 | XMS_ITS | Data Portability ---
Author Organization [facility] KATERYNA [place] Grace Address [address] [place] [address] Care Team Providers Care Singe Machine Operator Name Role Phone AJ KHOURY Primary Care Provider [phone] Assessment No assessment recorded. Plan of Treatment Reminders Order Date Submit Date Provider Last Modified By Organization Details Last Modified Time Details Appointments None recorded. Lab rapid SARS CoV 2 Ag, QL IA, respiratory specimen 2021 022 CHELYL In-Office Order, Internal Use Only DO Not Attach Compendium DO Not Attach Compendium, Do Not Delete/merge, [id number] 13:11:23 Referral None recorded. Procedures None recorded. Surgeries None recorded. Imaging None recorded. Medication Orders ondansetron HCl 8 mg tablet 2021 022 CHELLY Not available 11:20:04 Patient TargetsNo targets recorded. Patient Instructions Encounter Date Encounter Id Patient Instructions Last Modified By Organization Details Last Modified Time 07/25/2021 [id number] When You Want to Lose Weight: Care Instructions jnanney Not available 07/25/2021 16:47:44 08/01/2021 [id number] nausea and vomiting: care instructions jnanney Not available 08/01/2021 16:33:24 When You Want to Lose Weight: Care Instructions jnanney Not available 08/01/2021 16:18:35 08/21/2021 [id number] When You Want to Lose Weight: Care Instructions jnanney Not available 08/21/2021 17:07:29 10/11/2021 [id number] body mass index: care instructions jnanney Not available 10/11/2021 11:51:06 learning about healthy weight jnanney Not available 10/11/2021 11:51:06 Reason for Referral None Reported. Results Created Date Observation Date Name Description Value Unit Range Abnormal Flag Note LastModifiedBy Organization Detail LastModifiedTime 07/05/1907/04/2021 HbA1c (hemo globi n A1c), blood HbA1c 5.1 Not Available In-Office Order Internal Use Only DO Not Attach Compendium DO Not Attach Compendium, Do Not Delete/merge, [id number] 07/04/2021 16:25:25 09/19/19 22 09/18/2021 rapid SARS CoV 2 Ag, QL IA, respi rator y speci men rapid SARS CoV 2 Ag, QL IA, respiratory specimen positi ve Not Available In-Office Order Internal Use Only DO Not Attach Compendium DO Not Attach Compendium, Do Not Delete/merge, [id number] 09/18/2021 12:54:37 Result Notes None recorded. Problems Name Problem SNOMED Code Status Onset Date Resolution Date Notes Provider Name and Address Organization Details Recorded Time Rheumatism 245369650 Active 019 Danielle Forte MA null, [facility] 9 12:34:36 Problem Notes None recorded. Procedures Surgical History Date Name Laterality Status Provider Name and Address Organization Details Recorded Time 01/29/20 19 foot repair completed Danielle Forte MA [facility] 03/03/2019 11:10:59 Knee Surgery completed Che Rodriguez MA [facility] 01/04/2016 10:24:56 Tonsillectomy completed Che Rodriguez MA [facility] 01/04/2016 10:25:06 Tubal Ligation completed Che Rodriguez MA [facility] 01/04/2016 10:25:21 Breast Surgery completed Che Rodriguez MA [facility] 01/04/2016 10:25:28 Caesarean Section completed Che Rodriguez MA [facility] 01/04/2016 10:25:37 Hysterectomy completed Che Rodriguez MA [facility] 01/04/2016 10:25:47 Imaging Results None recorded. Procedure Notes None recorded. Medical Equipment None Reported. Allergies Allergen ID Allergen Name Allergen Category Reaction Reaction Severity Criticality Documentation Date Start Date Code Code System Note Provider Name and Address Organization Details Recorded Time 08916 cultivate d mushroom extract food,medi cation facial swelling Not available Not available 01/04/2016 57652 17 RxNorm throa t gets itchy TERRENCE Campos, [place] - [facility] 2 12:01:29 Medications Name Sig Start Date Stop Date Status Note LastModified by Organization Details LastModified Time celecoxib 200 mg capsule 08/01 completed Not Available Not Available Not Available cyclobenzap rine 10 mg tablet TAKE 1 TABLET BY MOUTH TWICE DAILY active Not Available Not Available No t Available nystatin 100,000 unit/mL oral suspension 03/03 completed Not Available Not Available Not Available gabapentin 600 mg tablet TAKE 1 TABLET BY MOUTH TWICE DAILY active Not Available Not Available No t Available fluconazole 150 mg tablet 04/30 completed Not Available Not Available Not Available sumatriptan 100 mg tablet TAKE ONE TABLET BY MOUTH AT ONSET OF MIGRAINE. IF SYMPTOMS PERSIST, A SECOND DOSE MAY BE TAKEN IN 2 HOURS. DO NOT EXCEED 2 DOSES IN A 24 HOUR PERIOD, UNLESS OTHERWISE INSTRUCTE D BY YOUR PHYSICIAN active Not Available Not Available No t Available hydrocodone 5 mg-acetamin ophen 325 mg tablet TAKE 1 TABLET BY MOUTH EVERY 12 HOURS NEEDED FOR PAIN 08/01 completed Not Available Not Available Not Available ondansetron HCl 8 mg tablet Take 1 tablet twice a day by oral route for 10 days. 10/11 completed Not Available Not Available Not Available fluconazole 200 mg tablet TAKE 1 TABLET BY MOUTH EVERY 72 HOURS DIRECTED. active Not Available Not Available No t Available prednisone 5 mg tablet active Not Available Not Available Not Available topiramate 25 mg tablet TAKE ONE TABLET (25 MG) BY MOUTH in morning, THEN TAKE 2 TABLETS AT NIGHT active Not Available Not Available No t Available aspirin 81 mg tablet,samantha yed release Take 1 tablet every day by oral route. active Not Available Not Available No t Available triamterene 37.5 mg-hydrochl orothiazide 25 mg capsule Take 1 capsule by mouth once daily active Not Available Not Available No t Available triamcinolo ne acetonide 0.1 % topical cream 08/01 completed Not Available Not Available Not Available Hydrocerin lotion Apply 1 applicati on twice a day by topical route for 30 days. 03/03 completed Not Available Not Available Not Available Guaiatussin AC 10 mg-100 mg/5 mL oral liquid Take 10 mL every 4 hours by oral route for 10 days. 04/09 completed Not Available Not Available Not Available potassium chloride ER 20 mEq tablet,exte nded release(par t/cryst) 04/30 completed Not Available Not Available Not Available methotrexat e sodium 2.5 mg tablet Take 5 tablets every day by oral route for 28 days. 03/03 completed Not Available Not Available Not Available ciprofloxac in 0.3 % eye drops 3 drops to affected ear tid for 7 days 04/09 completed Not Available Not Available Not Available meclizine 25 mg tablet TAKE 1 TABLET 3 TIMES A DAY BY MOUTH NEEDED FOR 30 DAYS. 08/01 completed Not Available Not Available Not Available cephalexin 500 mg capsule TAKE 1 CAPSULE BY MOUTH THREE TIMES DAILY FOR 10 DAYS active Not Available Not Available No t Available diclofenac sodium 75 mg tablet,samantha yed release 04/09 completed Not Available Not Available Not Available folic acid 1 mg tablet TAKE 1 TABLET BY MOUTH EVERY DAY active Not Available Not Available No t Available hydrocortis one 2.5 % topical cream 04/30 completed Not Available Not Available Not Available insulin syringe U-100 with needle 1 mL 29 gauge x 1/2 USE DIRECTED active Not Available Not Available No t Available hydroxychlo roquine 200 mg tablet TAKE 2 TABLETS BY MOUTH ONCE DAILY active Not Available Not Available No t Available epinephrine 0.3 mg/0.3 mL injection, auto-inject or Take 1 auto by injection route as needed. active Not Available Not Available No t Available methylpredn isolone 4 mg tablets in a dose pack TAKE 6 TABLETS ON DAY 1 DIRECTED ON PACKAGE AND DECREASE BY 1 TAB EACH DAY FOR A TOTAL OF 6 DAYS active Not Available Not Available No t Available albuterol sulfate HFA 90 mcg/actuati on aerosol inhaler INHALE 2 PUFFS BY MOUTH EVERY 4 HOURS NEEDED active Not Available Not Available No t Available oxycodone 5 mg tablet TAKE 1 OR 2 TABLETS BY MOUTH EVERY 12 HOURS NEEDED active Not Available Not Available No t Available azithromyci n 500 mg tablet TAKE 1 TABLET BY MOUTH EVERY DAY FOR 3 DAYS 05/17 completed Not Available Not Available Not Available methotrexat e sodium (PF) 25 mg/mL injection solution INJECT 0.5ML SUBCUTANE OUSLY ONCE A WEEK (DISCARD VIAL AFTER EACH USE) active Not Available Not Available No t Available bupropion HCl XL 150 mg 24 hr tablet, extended release active Not Available Not Available Not Available topiramate 50 mg tablet TAKE 1 TABLET BY MOUTH TWICE A DAY active Not Available Not Available No t Available duloxetine 60 mg capsule,del ayed release TAKE 1 CAPSULE BY MOUTH ONCE DAILY active Not Available Not Available No t Available Cymbalta 30 mg capsule,del ayed release Take 1 capsule every day by oral route. active Not Available Not Available No t Available biotin active Not Available Not Availa ble Not Available Zyrtec active Not Available Not Availa ble Not Available potassium chloride ER 20 mEq tablet,exte nded release TAKE 1 TABLET BY MOUTH ONCE DAILY WITH FOOD active Not Available Not Available No t Available methotrexat e (PF) 12.5 mg/0.5 mL subcutaneou s syringe Inject by subcutane ous route. 08/01 completed Not Available Not Available Not Available Vitals Date Recorded Body height Body temperature Oxygen saturation Oxygen saturation in Arterial blood by Pulse oximetry Heart rate Body mass index (BMI) Body weight Systolic And Diastolic Provider Name and Address Organization Details Last Updated DateTime 2 163.83 cm 97.4 [degF] 97 % 97 % 97 /min 53.8 kg/m2 971188. 53 g 130/84 mm[Hg] Margaret whipple MA [facility] 2 16:00:01 Date Recorded Body height Body temperature Oxygen saturation Oxygen saturation in Arterial blood by Pulse oximetry Heart rate Body mass index (BMI) Body weight Systolic And Diastolic Provider Name and Address Organization Details Last Updated DateTime 2 163.83 cm 97.8 [degF] 94 % 94 % 82.01 /min 54.2 kg/m2 507631. 15 g 124/82 mm[Hg] Ni Mendoza [place] - [facility] 2 15:50:52 Date Recorded Body height Body mass index (BMI) Body weight Body temperature Oxygen saturation Oxygen saturation in Arterial blood by Pulse oximetry Heart rate Systolic And Diastolic Provider Name and Address Organization Details Last Updated DateTime 2 163.83 cm 52.9 kg/m2 052997. 41 g 97.3 [degF] 98 % 98 % 104 /min 128/82 mm[Hg] Ni Mendoza MA [facility] 2 16:43:26 Date Recorded Body height Body mass index (BMI) Body weight Body temperature Oxygen saturation Oxygen saturation in Arterial blood by Pulse oximetry Heart rate Systolic And Diastolic Provider Name and Address Organization Details Last Updated DateTime 2 163.83 cm 51.9 kg/m2 985416. 86 g 97.6 [degF] 99 % 99 % 77 /min 140/100 mm[Hg] Aliza hernandez MA [facility] 2 11:22:47 Social History Question Answer Notes LastModified by Organizat ion Details LastModified Time Tobacco Smoking Status Never Smoker Che Rodriguez MA [facility], [place] - [facility] 01/04/2016 10:24:30 What Is Your Level Of Caffeine Consumption? None Information not available 10/11/2021 In The 14 Days Before Symptom Onset, Have You Had Close Contact With A Laboratory-confir med COVID-19 While That Case Was Ill? No Information not available 08/01/2020 In The 14 Days Before Symptom Onset, Have You Had Close Contact With A Person Who Is Under Investigation For COVID-19 While That Person Was Ill? No Information not available 08/01/2020 Have You Been To An Area Known To Be High Risk For COVID-19? No Information not available 08/01/2020 What Type Of Diet Are You Following? REGULAR Does Not Eat Alot. Information not available 10/11/2021 What Was The Date Of Your Most Recent Tobacco Screening? 10/11/2021 Information not available 10/11/2021 What Is Your Relationship Status? Information not available 08/01/2020 Do You Use Your Seat Belt Or Car Seat Routinely? Yes Information not available 08/01/2020 Do You Have Smoke And Carbon Monoxide Detectors In Your Home? Yes Information not available 08/01/2020 Are You Passively Exposed To Smoke? No Information no t available 08/01/2020 How Much Tobacco Do You Smoke? No Information not available 03/03/2019 Has Tobacco Cessation Counseling Been Provided? No Information not available 08/01/2020 On What Date Was Tobacco Cessation Counseling Provided? 10/11/2021 Information not available 10/11/2021 Sex: Unknown Functional Status Question Answer Note LastModified by Organizat ion Details LastModified Time Do you use any illicit or recreational drugs? No Information not available 08/01/2020 Do you or have you ever used any other forms of tobacco or nicotine? No Information not available 08/01/2020 What is your level of alcohol consumption? None Information not available 10/11/2021 Do you or have you ever used smokeless tobacco? Never used smokeless tobacco Information not available 03/03/2019 Are you currently employed? No Information not available 08/01/2020 Are you able to care for yourself independently? Yes Information not available 08/01/2020 Do you or have you ever used e-cigarettes or vape? Never used electronic cigarettes Information not available 03/03/2019 What is your exercise level? Occasional Information not available 10/11/2021 Mental Status Question Answer Note LastModified by Organization D etails LastModified Time Do you feel stressed (tense, restless, nervous, or anxious, or unable to sleep at night)? [id number] Information not available 08/01/2020 Family History Relationship Description Onset Age of this Age Resolved Age Notes LastModified by Organization Details LastModified Time Brother Alcoholism Not jono ilable 01/04/2016 10:17:52 Brother Migraine Not avail able 01/04/2016 10:24:03 Mother Asthma Not availabl e 01/04/2016 10:18:29 Mother Depressive disorder Not available 10/2015 10:19:09 Mother Disorder of thyroid gland Not available 10/2015 10:19:41 Mother Hypertensive disorder Not available 10/2015 10:19:57 Mother Migraine Not availa ble 01/04/2016 10:21:21 Mother Osteoporosis Not av ailable 01/04/2016 10:21:56 Father Kidney disease Not available 10/2015 10:23:09 Father Migraine Not availa ble 01/04/2016 10:23:45 Sister Migraine Not availa ble 01/04/2016 10:24:09 Medical History Condition Response Coronary Artery Disease N Other Y High Blood Pressure N Atrial Fibrillation N Thyroid Problems N Kidney or Bladder Problems N GI Problems N Depression N COPD N Blood Clots N Skin Problems N Eating Disorder N Anemia N Heart Attack ([place]) N Diabetes N Anxiety Disorder N Muscle, Joint, or Bone Problems N Seizures/Epilepsy N Acid Reflux (GERD) N Cancer N Stroke N Asthma N Allergies Y ADHD N Substance Abuse N High Cholesterol N Hepatitis N Liver Disease N Schizophrenia N Headaches Y Osteoporosis N Heart Failure N Gynecological History Statement/Question Response Date of Last Pap Smear Date of Last Mammogram Obstetrics History GPAL:G 0 P 0 0 0 0 Immunizations Vaccine Type Date Status Note Provider Nam e and Address Organization Details Recorded Time COVID-19, mRNA, LNP-S, PF, 30 mcg/0.3 mL dose 05/30/2020 completed Ni Mendoza [place] null, [place] - [facility] 05/22/2021 16:32:11 COVID-19, mRNA, LNP-S, PF, 30 mcg/0.3 mL dose 06/21/2020 completed Ni Mendoza [place], [place] [facility] 05/22/2021 16:32:17 COVID-19, mRNA, LNP-S, PF, 30 mcg/0.3 mL dose, yvette-sucrose 05/23/2021 shabbir Mendoza [place] null, [place] [facility] 05/23/2021 18:22:00 Past Encounters Encounter ID Performer Location Encounter Start Date Encounter Closed Date Diagnosis/Indication Diagnosis SNOMED-CT Code Diagnosis ICD10 Code Diagnosis IMO Codes Diagnosis Note [id number] RUBY [facility] [address] [place] [address] 01/04/2016 09:59:15 01/04/2016 10:48:17 Morbid obesity 346714191 E66.01 Anemia 610844361 D64.9 [id number] Aj Khoury PA-C [facility] [address] [place] [address] 01/11/2016 10:53:51 01/11/2016 13:16:21 Anemia 129389052 D64.9 Morbid obesity 544308494 E66.01 Rheumatoid arthritis 698 61255 M06.9 [id number] Aj Khoury PA-C [facility] [address] [place] [address] 05/16/2016 11:11:45 05/16/2016 13:44:55 Anemia 994697415 D64.9 Rheumatoid arthritis 698 63604 M06.9 Morbid obesity 987180336 E66.01 [id number] Jonathan Leiva MD [facility] [address] [place] [address] 04/09/2017 16:29:56 04/09/2017 17:23:11 Rheumatoid arthritis 59572098 M06.811 Osteoarthritis 171765182 M15.0 Body mass index 40+ - severely obese 900537318 Z68.43 Essential hypertension 48867823 I10 [id number] Aj Khoury PA-C [facility] [address] [place] [address] 04/30/2018 12:08:05 04/30/2018 13:04:40 Rheumatoid arthritis 44826047 M06.841 Chronic re current sinusitis 339311639 J32.0 [id number] Aj Khoury PA-C [facility] [address] [place] [address] 11/18/2018 12:31:59 11/18/2018 13:47:53 Rheumatism 095880304 M79.0 [id number] Aj Khoury PA-C [facility] [address] [place] [address] 03/03/2019 11:00:56 03/03/2019 12:11:32 Rheumatism 809815677 M79.0 Chronic hypokalemia 1046 9003 E87.6 [id number] RUBY Issa [facility] [address] [place] [address] 04/07/2019 16:41:28 04/07/2019 17:46:41 Serum potassium level below reference range 576512655 R79.0 [id number] Jonathan Leiva MD [facility] [address] [place] [address] 08/01/2020 14:34:07 08/01/2020 16:06:23 Seronegative rheumatoid arthritis 896853508 M06.011 Body mass index 30+ - obesity 676105101 Z68.43 [id number] Jonathan Leiva MD [facility] [address] [place] [address] 05/17/2021 11:55:27 05/17/2021 12:30:19 Family history of lupus erythematosus 184628602 Z84.0 Seronegati ve rheumatoid arthritis 533769035 M06.011 Cervical radiculopathy 86779276 M54.12 [id number] Jonathan Leiva MD [facility] [address] [place] [address] 05/23/2021 17:38:21 05/25/2021 10:06:46 Administration of SARS-CoV-2 mRNA vaccine 0466348551 Z23 [id number] Jonathan Leiva MD [facility] [address] [place] [address] 06/20/2021 15:49:14 06/20/2021 16:58:29 Type 2 diabetes mellitus 15234560 E11.9 [id number] Aj Khoury PA-C [facility] [address] [place] [address] 07/04/2021 15:44:56 07/04/2021 16:36:41 Body mass index 40+ - severely obese 387229820 Z68.43 [facility] 426603617 Z00.00 Rheumatoid arthritis 698 33494 M06.871 [id number] Aj Khoury PA-C [facility] [address] [place] [address] 07/25/2021 15:44:18 07/25/2021 16:57:47 Morbid obesity 597242660 E66.01 [id number] MD [facility] [address] [place] [address] 08/01/2021 15:42:57 08/01/2021 16:41:17 Morbid obesity 490979469 E66.01 [facility] 022473284 R11.0 [id number] Jonathan Leiva MD [facility] [address] [place] [address] 08/21/2021 16:35:40 08/21/2021 17:11:52 Morbid obesity 460777123 E66.01 [id number] Aj Khoury PA-C [facility] [address] [place] [address] 09/18/2021 12:52:55 09/18/2021 13:01:18 Suspected COVID-19 609537214 Z20.292 [id number] Aj Khoury PA-C [facility] [address] [place] [address] 10/11/2021 11:15:20 10/11/2021 12:05:34 Body mass index 40+ - severely obese 412470023 Z68.43 Health Concerns Section Related Observation LastModified by Organization Detai ls LastModified Time None Recorded Concern Status LastModified by Organization Details LastModified Time None Recorded Advance Directives Directive None Recorded Payers Insurance Date Sequence Insurance Name Policy Number Policy Jacob Covered Member ID Jacob Member ID Guarantor Name 10/08/2021 1 [facility] [id number] Aldair Roberto [id number] Samantha Roberto Notes Date Note Type Note Provider Name and Address Organization Details Recorded Time 07/25/2021 text/html ROS as noted in the HPI has dropped 3 pounds in 3 weeks...excerciz e is giving joint pains...rt knee is painful...fell and twisted it Aj Khoury PA-C Attn: [address] [place], [address], [facility] 07/25/2021 16:52:03 08/01/2021 text/html ROS as noted in the HPI searching for weight loss still...weight is unchanged but clothing starting to decrease.... Aj Khoury PA-C Attn: [address] [place], [address], [facility] 08/01/2021 16:33:36 08/21/2021 text/html ROS as noted in the HPI is back to having to take care of her due to his leg...stress no sleep no eat and she has dropped weight... Aj Khoury PA-C Attn: [address] [place], [address], [facility] 08/21/2021 17:09:40 10/11/2021 text/html ROS as noted in the HPI Here for weight check...also her is having his leg amputated...stre ssed... Aj Khoury PA-C Attn: [address] [place], [address], [facility] 10/11/2021 12:00:27 OBGyn Episode No OBEpisode recorded.
--- OUTSIDE RECORDS SUMMARY | 2025-01-02 14:58 | XMS_ITS | Clinical Summary ---
Author Organization [facility] Address [address] [place] [address] Care Team Providers Care Supervisor [employer] Name Role Phone Tanya Casanova MD Primary Care Provider Kirstin calloway Source Comments [facility],non-cass medical center Affiliates and Associated Physician Practices is amultiple site organization consisting of ambulatory clinics and hospital sitesin [place], [place], [place] and [place]. This disclosure is being madepursuant to the Care Everywhere program and may not contain all information available regarding this patient. Last updated 17.[facility] [employer] Social History Tobacco Use Types Packs/Day Years [...] 2016 ZOSTER VACCINE (1 of 2) 2016 DEPRESSION SCREENING 02/26/2024 COVID-19 VACCINE (1 - 2023-2 5 season) 2024 INFLUENZA VACCINE (#1) 2024 HIB VACCINE Aged [...] patient's age to complete this topic Insurance [facility] Address: [facility] [address] [place] [address] [facility] Care Teams Supervisor [employer] Relationship Specialty Start Date End Date Tanya Casanova MD PCP - General 08/05/17
--- OUTSIDE RECORDS SUMMARY | 2025-01-02 14:58 | XMS_ITS | Clinical Summary ---
Author Organization [facility] Address [facility] [place] [address] Care Team Providers Care Insurance Account Executive Name Role Phone Travon Renee MD Primary Care Provider [phone] Allergies Active Allergy Reactions Criticality Noted Date [...] 08/25/2018 Assessment & Plan (12/30/2018 11:55 AM SCIENTIFIC SYSTEMS ANALYST): She will wear her bilevel set at [...] 08/25/2018 Assessment & Plan (12/30/2018 11:54 AM SCIENTIFIC SYSTEMS ANALYST): She will try to practice good dietary [...] Elevated serum creatinine 05/01/2017 Rheumatoid arthritis of [facility] sites without rheumatoid factor 08/20/2016 High risk medication use 08/20/2016 Rheumatoid arthritis 12/28/2013 Overview (05/31/2016): RA Hypertension 07/11/2013 Overview (05/31/2016): HYPERTENSION NOS Assessment & Plan (12/30/2018 11:55 AM SCIENTIFIC SYSTEMS ANALYST): She will wear her bilevel set at [...] Type Department Care Team Description 10/13/2024 Telephone [facility] [address] [place] [address] Swapna Belle BANKING SERVICES CLERK from Last 3 Months Immunizations Immunization Administration [...] on file Legal Sex Female 6:49 PM SCIENTIFIC SYSTEMS ANALYST Gender Identity Not on file Sexual Orientation [...] Read Routine (OP Routine) 03/28/2017 12:30 PM SCIENTIFIC SYSTEMS ANALYST Encounter for annual routine gynecological examination from Last 3 Months or Most Recently Relevant to Health Maintenance Results * Screening Mammogram 2D Bilateral (03/28/2017 12:30 PM SCIENTIFIC SYSTEMS ANALYST) Anatomical Region Laterality Modality Breast Bilateral Mammography Impressions 03/28/2017 3:28 PM SCIENTIFIC SYSTEMS ANALYST 1. BI-RADS Category 1, negative. 2. Annual bilateral screening mammography is recommended. Electronically signed by: Kody Sterling M.D. Narrative 03/28/2017 3:28 PM SCIENTIFIC SYSTEMS ANALYST RESULT: EXAMINATION: Bilateral screening mammogram HISTORY: Routine [...] Most Recently Relevant to Health Maintenance Insurance [facility] Address: [address] [place] [address] [facility] [employer] [facility] Address: [address] [place] [address] [facility] [employer] [facility] Address: [address] [place], [place] [id number] Care Teams Insurance Account Executive Relationship Specialty Start Date End Date Travon Renee MD PCP - General Family Practice 05/24/23
--- OUTSIDE RECORDS SUMMARY | 2025-01-02 14:59 | XMS_ITS | Clinical Summary ---
Author Organization [facility] Tommy Maher Address [address] [place] [address] Care Team Providers Care Garnett Mechanic Name Role Phone Kody Khoury Primary Care Provider [phone] Allergies No known active allergies Medications inFLIXimab [...] 11/21/2022 INFLUENZA VACCINE (#1) 2024 12/24/2016 Insurance [facility] [employer] PPO [id number] Care Teams Garnett Mechanic Relationship Specialty Start Date End Date Kody Khoury PA [address] [place] [address] PCP - General Physician Receiving Teller 09/09/20
--- OUTSIDE RECORDS SUMMARY | 2025-01-02 14:59 | XMS_ITS | Clinical Summary ---
Author Organization [facility] Address [address] [place] [address] Phone Care Team Providers Care Radar Signal Processing Engineer Name Role Phone Kody Khoury Primary Care Provider [phone] Allergies No known active allergies Medications hydroxychloroqu [...] Comments Blood Pressure 142/84 04/06/2020 1:57 PM FACILITY PRACTICE SPECIALIST Pulse 93 04/06/2020 1:57 PM FACILITY PRACTICE SPECIALIST Temperature 36.9 C (98.5 F) 04/06/2020 1:57 PM FACILITY PRACTICE SPECIALIST Respiratory Rate 16 05/06/2019 11:30 AM CDT Oxygen Saturation 95% 04/06/2020 1:57 PM FACILITY PRACTICE SPECIALIST Inhaled Oxygen Concentration - - Weight 146.1 kg (322 lb) 04/06/2020 1:57 PM FACILITY PRACTICE SPECIALIST Height 163.8 cm (5' 4.5) 05/06/2019 6:07 [...] years) (1 of 1 - PCV) 2016 Respiratory Syncytial Virus (RSV) Immunization (Adult) (1 - Risk 50-74 years 1-dose series) 2016 SARS-COV-2 Immunization (3 - Pfizer risk series) 07/19/2020 06/21/2020, 05/30/2020 Influenza Immunization (#1) 2024 Human Papillomavirus (HPV) Immunization Aged Out No longer eligible b ased on patient's age to complete this topic Meningococcal Immunization (ACWY) Aged Out No longer eligible b ased on patient's age to complete this topic Rotavirus Immunization Aged Out No lo nger eligible based on patient's age to complete this topic Care Teams Radar Signal Processing Engineer Relationship Specialty Start Date End Date Kody Khoury, [facility] [address] [place] [address] PCP - General Physician Miller Apprentice 07/19/17
--- OUTSIDE RECORDS SUMMARY | 2025-01-02 14:59 | XMS_ITS | Clinical Summary ---
Author Organization [facility] Address [facility] [place] [address] Care Team Providers Care Diamond Grinder Name Role Phone Unavailable Primary Care Provider [...] Vaccines (1 of 2) 2016 COVID-19 Vaccine (2024-2 6 season) 2024 Influenza Adult (#1) 2024 Hepatitis A Vaccines Aged Out No long er eligible based on patient's age to complete this topic Meningococcal B Vaccine Aged Out No l onger eligible based on patient's age to complete this topic Meningococcal Vaccine Aged Out No cornell frank eligible based on patient's age to complete this topic RSV Immunizations Under 20 Months Aged Out No longer eligible based on patient's age to complete this topic
== END 2025-01-02 14:51 | disposition home or self-care (01) ==
LOC: ANHIMG 14:56
PROVIDERS: PCP Nurse Practitioner Family; Visit Provider Nurse Practitioner Family
DX: R05.9 Cough, unspecified (principal)
CPT/HCPCS: 71046